=== PATIENT | female | born 1930 | race Two or more races ===

== ENCOUNTER 2018-07-02 13:20 | Outpatient (CLI) | payer MEDICARE, OTHER ==
[2018-07-02] MEDS ORDERED: DEXAMETHASONE SOD PHOSPHATE 4 MG/ML VIAL IJ ONE (15:00)
[2018-07-02] MEDS ORDERED: ETHYL CHLORIDE SPRAY 1 EA BOTTLE TP ONE (15:00)
== END 2018-07-02 23:59 | disposition home or self-care (01) ==
LOC: WOU 13:20
PROVIDERS: ATTEND Podiatrist Foot & Ankle Surgery
DX: M76.822 Posterior tibial tendinitis, left leg (principal); R60.0 Localized edema; M21.42 Flat foot [pes planus] (acquired), left foot
CPT/HCPCS: 20550; A6402; J1100